=== PATIENT | female | born 1965 | race Caucasian/White ===

== ENCOUNTER 2016-11-21 12:51 | Inpatient (IN) | payer BC ==
[~2016-11-21] VITALS: Ht 157.5 cm; Wt 77.1 kg
[~2016-11-21 12:51] MED LIST: MOTRIN400 MG PO; NORCO 5/325 MG1 TAB PO; REGLAN10 MG PO
[2016-11-21 12:52] VITALS: BP 159/104
--- NOTE | 2016-11-21 12:57 | NUR ---
Pt taken to bed 1
--- NOTE | 2016-11-21 13:11 | NUR ---
Patient being evaluated by physician at bedside.
[2016-11-21] MEDS ORDERED: NITROGLYCERIN 2% 1 GM PKT TP ONE (13:20)
[2016-11-21] MEDS ORDERED: ASPIRIN 81 MG TAB.CHEW PO ONE (13:20)
--- NOTE | 2016-11-21 14:01 | NUR ---
PATIENT PRESENTS TO ED WITH C/O SOB AND CHEST PAIN . PT STATES IT STARTED THIS MORNING . DENIES N/V/D; SKIN IS PINK/WARM/DRY; AAOX4 WITH EVEN AND STEADY GAIT; LUNGS CLEAR BL; HR EVEN AND REGULAR; PT DENIES ANY FEVER AT THIS TIME; PATIENT STATES PAIN OF 5/10 AT THIS TIME; VSS; PATIENT POSITIONED FOR COMFORT; HOB ELEVATED; BEDRAILS UP X2; BED DOWN. ER MD MADE AWARE OF PT STATUS.
--- NOTE | 2016-11-21 14:50 | NUR ---
PT IS AAOX4. ALL MONITOR IN PLACED. WILL CONTINUE TO MONITOR PT.
[2016-11-21] MEDS ORDERED: ACETAMINOPHEN 325 MG TAB PO PRN (15:00)
[2016-11-21] MEDS ORDERED: MORPHINE SULFATE 2 MG/ML SYR IVP PRN (15:00)
[2016-11-21] MEDS ORDERED: ONDANSETRON 4 MG/2 ML VIAL IVP PRN (15:00)
[2016-11-21] MEDS ORDERED: MORPHINE SULFATE 4 MG/ML SYR IVP PRN (15:00)
--- NOTE | 2016-11-21 15:47 | NUR ---
REPORT GIVEN TO MERT OROZCO.
--- NOTE | 2016-11-21 16:08 | NUR ---
Patient will be admitted to care of DR URBAN . Admited to TELE. Will go to room 120 B. Belongings list completed. Report to MERT OROZCO.
[2016-11-21 16:20] VITALS: BP 124/76
--- NOTE | 2016-11-21 16:20 | NUR ---
RECEIVED PT FROM ER ON A GURNEY AWAKE, AAOX4 AND AMBULATORY ACCOMPANIED BY . SKIN INTACT, WITH IV ACCESS ON RIGHT FOOT #24G PATENT AND INTACT. WITH O2 2LPM ON NC. INITIAL ASSESSMENT DONE. DISCUSSED PLAN OF CARE, PT VERBALIZED UNDERSTANDING. VS STABLE. SAFETY PRECAUTIONS ENFORCED. CALL LIGHT WITHIN REACH. WILL CONTINUE TO MONITOR.
--- NOTE | 2016-11-21 17:55 | NUR ---
PT AWAKE SITTING ON BED WATCHING TV ACCOMPANIED BY . ALL NEEDS MET AT THIS TIME. CALL LIGHT WITHIN REACH, WILL CONTINUE TO MONITOR.
--- NOTE | 2016-11-21 19:19 | NUR ---
ENDORSED PT TO [facility] PAINTING IN STABLE CONDITION FOR CONTINUITY OF CARE.
--- NOTE | 2016-11-21 19:30 | NUR ---
ASSUMED CARE OF PATIENT, AWAKE, ALERT AND ORIENTED. SLEEPING WELL, EASILY AROUSABLE. NO COMPLAINS. CALL LIGHT WITHIN REACH.
--- NOTE | 2016-11-21 20:00 | NUR ---
VITAL SIGNS STABLE NOTED. NO COMPLAINS. PLAN OF CARE DISCUSSED WITH PATIENT, VERBALIZED UNDERSTANDING WELL. CALL LIGHT WITHIN REACH.
[2016-11-21] MEDS: METOPROLOL 25 MG TAB PO SCH (20:58)
[2016-11-21 21:50] VITALS: BP 108/68
--- NOTE | 2016-11-21 23:49 | NUR ---
VITAL SIGNS STABLE. AFEBRILE. NO COMPLAINS. SLEEPING WELL, EASILY AROUSABLE. CALL LIGHT WITHIN REACH. AFEBRILE.
[2016-11-21 23:50] VITALS: BP 92/49
[2016-11-22] MEDS ORDERED: INFLUENZA VIRUS VACCINE QUAD 0.5 ML SYR IMVAC SCH (00:20)
[2016-11-22 04:16] VITALS: BP 94/54
--- NOTE | 2016-11-22 04:17 | NUR ---
VITAL SIGNS STABLE. NO COMPLAINS NOTED. CALL LIGHT WITHIN REACH. SLEEPING, EASILY AROUSABLE.
--- NOTE | 2016-11-22 07:15 | NUR ---
ENDORSED CARE AT BEDSIDE WITH PEDRO JEWEL INSERTER, PATIENT IN STABLE CONDITION.
--- NOTE | 2016-11-22 07:15 | NUR ---
ASSUMED CONTINUITY OF CARE. NO SIGNS AND SYMPTOMS OF ACUTE DISTRESS NOTICED. INITIAL ASSESSMENT DONE. KEEP COMFORTABLE ON BED. EXPLAINED DIAGNOSIS, PLAN OF CARE, PAIN MANAGEMENT TEACHING, USE OF CALL LIGHT/BED/TV/BATHROOM. VERBALIZED UNDERSTANDING. CALL LIGHT WITHIN REACH.
[2016-11-22 08:00] VITALS: BP 115/73
--- NOTE | 2016-11-22 08:00 | NUR ---
Patient's Plan of Care was discussed and reviewed with TAX ATTORNEY: LORENA MERINO
[2016-11-22] MEDS: ASPIRIN 81 MG TAB.CHEW PO SCH (08:55)
[2016-11-22] MEDS: ENOXAPARIN 40 MG/0.4 ML SYR SUBQ SCH (08:56)
[2016-11-22] MEDS: METOPROLOL 25 MG TAB PO SCH ×2 (08:57→20:24)
--- NOTE | 2016-11-22 09:14 | NUR ---
PATIENT HAS BEEN SCREENED AND CATEGORIZED MODERATE NUTRITION RISK. PATIENT WILL BE SEEN WITHIN 3-5 DAYS OF ADMISSION. 11/24/16-11/26/[address]
--- NOTE | 2016-11-22 10:54 | NUR ---
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 FAXED INITIAL REVIEW TO [facility] FAX# [phone] REF# [id number] PH# [phone] [facility] AND TO [facility] FAX# [phone] PH# [phone] [facility] 6,2
--- NOTE | 2016-11-22 11:00 | NUR ---
SEEN WATCHING TV AT THIS TIME. NO C/O PAIN. WILL MONITOR.
[2016-11-22 12:00] VITALS: BP 140/86
--- NOTE | 2016-11-22 12:40 | NUR ---
AMBULATES ON HALLWAY. HAD STEADY GAIT AND BALANCE. NO C/O PAIN.
[2016-11-22 16:00] VITALS: BP 123/79
--- NOTE | 2016-11-22 16:00 | NUR ---
VITALS SIGNS STABLE. NO C/O PAIN. CONTINUE MONITORING.
--- NOTE | 2016-11-22 17:25 | NUR ---
DR. URBAN WENT TO PT. ROOM AND SPOKE TO PATIENT. NO ORDER RECEIVED.
--- NOTE | 2016-11-22 19:12 | NUR ---
BEDSIDE REPORT GIVEN TO DEONNA PALMER. IN STABLE CONDITION.
--- NOTE | 2016-11-22 19:28 | NUR ---
RECEIVED REPORT FROM SANDEEP CARRILLO, AT BEDSIDE. INITIAL ASSESSMENT AND BODY CHECK DONE. PATIENT AAO X 4, ABLE TO FOLLOW COMMAND AND MAKE NEEDS KNOWN AND AMBULATORY BY SELF WITH STEADY GAIT. PATIENT CURRENTLY SITTING UP ON THE BED AND WATCHING TV. NO S/S OF DISTRESS OR SOB NOTED. PATIENT ONLY COMPLAINING A LITTLE BIT OF DISCOMFORT ON THE CHEST. SKIN WARM/DRY TO TOUCH WITH NORMAL COLOR AND INTACT. DISCUSSED PLAN OF CARE, PAIN MANAGEMENT AND MEDICATION REGIMEN WITH PATIENT AND PATIENT VERBALIZED UNDERSTANDING. PLACED PATIENT ON SAFETY PRECAUTIONS AND WILL CONTINUE TO MONITOR. CALL LIGHT LEFT WITHIN REACH.
--- NOTE | 2016-11-22 19:40 | NUR ---
DR. PHOENIX HERE TO SEE THE PATIENT AND WILL FOLLOW UP WITH NEW ORDERS.
[2016-11-22] MEDS ORDERED: ZOLPIDEM 5 MG TAB PO PRN (19:45)
[2016-11-22 20:00] VITALS: BP 102/54
--- NOTE | 2016-11-22 21:00 | NUR ---
ADMINISTERED AMBIEN PRN FOR C/O INSOMNIA WITH EDUCATION GIVEN. PATIENT TOLERATED WELL. WILL CONTINUE TO MONITOR
[2016-11-23] VITALS: BP 111/69
--- NOTE | 2016-11-23 01:35 | NUR ---
PATIENT RESTED COMFORTABLY IN BED WITH EVEN AND UNLABORED RESPIRATORY. V/S REMAINED WNL AND AFEBRILE. NO ANY COMPLAINT MADE AND WILL CONTINUE TO MONITOR.
[2016-11-23 04:00] VITALS: BP 103/66
--- NOTE | 2016-11-23 04:50 | NUR ---
PATIENT IS CLINICALLY STABLE AND NO APPARENT DISTRESS NOTED. WILL CONTINUE TO MONITOR.
--- NOTE | 2016-11-23 07:08 | NUR ---
ASSUMED CONTINUITY OF CARE. NO SIGNS AND SYMPTOMS OF ACUTE DISTRESS NOTED. INITIAL ASSESSMENT DONE. EXPLAINED DIAGNOSIS, PLAN OF CARE, PAIN MANAGEMENT TEACHING, USE OF CALL/BED/TV/BATHROOM. VERBALIZED UNDERSTANDING. CALL LIGHT WITHIN REACH.
--- NOTE | 2016-11-23 07:08 | NUR ---
ENDORSED PLAN OF TO SANDEEP CARRILLO. PATIENT RESTED WELL THROUGHOUT THE SHIFT AND REMAINED IN STABLE CONDITION WITHOUT APPARENT DISTRESS NOTED.
[2016-11-23 08:00] VITALS: BP 137/68
[2016-11-23] MEDS: METOPROLOL 25 MG TAB PO SCH (09:00)
[2016-11-23] MEDS: ENOXAPARIN 40 MG/0.4 ML SYR SUBQ SCH (09:03)
[2016-11-23] MEDS: ASPIRIN 81 MG TAB.CHEW PO SCH (09:03)
--- NOTE | 2016-11-23 10:15 | NUR ---
BACK FROM CARDIO VIA WHEELCHAIR. IN STABLE CONDITION. KEEP COMFORTABLE ON BED.
--- NOTE | 2016-11-23 10:20 | NUR ---
CM NOTE CONCURRENT REVIEW SENT TO [facility] FAX# [phone] PH# [phone] AND TO [facility] FAX# [phone] PH# [phone]
--- NOTE | 2016-11-23 11:15 | NUR ---
DR. [facility] [place]AME, CHECKED PT. CHART AND SEEN PT..
--- NOTE | 2016-11-23 11:55 | NUR ---
STRESS TEST COMPLETED
[2016-11-23 12:00] VITALS: BP 97/54
--- NOTE | 2016-11-23 12:43 | NUR ---
SEEN WATCHING TV AT THIS TIME. NO DISCOMFORT NOTICED.
--- NOTE | 2016-11-23 13:30 | NUR ---
DR. URBAN CAME, SEEN PT., CHECKED PT. CHART.
--- NOTE | 2016-11-23 15:00 | NUR ---
EXPLAINED ABOUT DIAGNOSIS, MD D/C ORDER, D/C INSTRUCTIONS AND TEACHING, MD FOLLOW-UP, PAIN MANAGEMENT TEACHING, DIET. VERBALIZED UNDERSTANDING.
--- NOTE | 2016-11-23 16:20 | NUR ---
AWAKE, ALERT, AND ORIENTED X4. SPEECH CLEAR. NO C/O PAIN. NO SOB, NOTED. SKIN WARM, DRY, AND INTACT. IN STABLE CONDITION. D/C VIA WHEELCHAIR WITH ASSISTANCE FROM ROCKY RODRIGUEZ. INFORMED CHARGE NURSE LUCIA PALMER.
[2016-11-23] MEDS ORDERED: METOPROLOL 25 MG TAB PO SCH ×2 (21:00)
== END 2016-11-23 16:20 | disposition home or self-care (01) | DRG 392 ==
LOC: MED 12:51 → MTU 15:01
PROVIDERS: ADMIT Hospitalist; ATTEND Hospitalist
DX: K21.9 Gastro-esophageal reflux disease without esophagitis (principal); B19.20 Unspecified viral hepatitis C without hepatic coma; I10 Essential (primary) hypertension; F17.210 Nicotine dependence, cigarettes, uncomplicated; Z88.1 Allergy status to other antibiotic agents; Z88.2 Allergy status to sulfonamides; Z90.49 Acquired absence of other specified parts of digestive tract; Z86.19 Personal history of other infectious and parasitic diseases

== ENCOUNTER 2017-05-30 09:19 | Emergency (ER) | payer BC, OTHER ==
[~2017-05-30] VITALS: Ht 157.5 cm; Wt 106.8 kg
[2017-05-30 09:30] VITALS: BP 150/90
[2017-05-30] MEDS ORDERED: OMEP10EC PO (09:34)
--- NOTE | 2017-05-30 09:35 | NUR ---
Patient ambulated to bed 8. RN evaluating patient at bedside.
--- NOTE | 2017-05-30 09:36 | NUR ---
52/F BIB SELF C/O R WRIST PAIN AFTER PICKING UP A STACK OF FILES AT WORK 30MINS SAMPLE HAND. SKIN IS PINK/WARM/DRY; AAOX4 WITH EVEN AND STEADY GAIT; LUNGS CLEAR BL; HR EVEN AND REGULAR; PATIENT STATES PAIN OF 8/10 AT THIS TIME; VSS; PATIENT POSITIONED FOR COMFORT; HOB ELEVATED; BEDRAILS UP X2; BED DOWN. ER MD MADE AWARE OF PT STATUS.
--- NOTE | 2017-05-30 09:50 | NUR ---
PT TAKEN TO X [facility]AY
--- NOTE | 2017-05-30 09:55 | NUR ---
PT BACK FROM X [facility]
--- NOTE | 2017-05-30 10:05 | NUR ---
Celso guerrero in [facility] - 05/30/17 at [address] Cee evaluating patient at bedside.
--- NOTE | 2017-05-30 10:06 | NUR ---
Dr. Cee evaluating patient at bedside.
[2017-05-30] MEDS: IBUPROFEN 800 MG TAB PO ONE (10:18)
--- NOTE | 2017-05-30 10:18 | NUR ---
PT STS PAIN R WRIST 05/31. ADMINISTERED MED PER ORDER. Patient appears to be resting comfortably in bed. BP 133/71. Respirations even and unlabored.WILL CONTINUE TO MONITOR.
--- NOTE | 2017-05-30 10:30 | NUR ---
SPLINT TO R WRIST DONE BY MARKUS ANN. PT TOLERATED PROCEDURE WELL.
[2017-05-30 11:05] VITALS: BP 129/67
== END 2017-05-30 11:05 | disposition home or self-care (01) ==
LOC: MED 09:19
DX: M25.531 Pain in right wrist (principal); R20.2 Paresthesia of skin; R03.0 Elevated blood-pressure reading, without diagnosis of hypertension; Z88.2 Allergy status to sulfonamides; Z88.1 Allergy status to other antibiotic agents; Z79.899 Other long term (current) drug therapy
CPT/HCPCS: 73110; 99284